=== PATIENT | female | born 2000 | race Two or more races ===

== ENCOUNTER 2024-05-08 19:52 | Emergency (ER) | payer SELFPAY ==
[2024-05-08 19:53] VITALS: BMI 20.4
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
== END 2024-05-08 21:34 | disposition left against medical advice (07) ==
LOC: SERX 21:43
PROVIDERS: Emergency Provider Emergency Medicine
DX: Z53.21 Procedure and treatment not carried out due to patient leaving prior to being seen by health care provider (principal)

== ENCOUNTER 2025-03-10 16:00 | Emergency (ER) | payer SELFPAY ==
[2025-03-10 16:27] VITALS: BP 112/73; PULSE 95; RESP 18; TEMP 36.6; O2SAT 95; BMI 18.6
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
== END 2025-03-10 20:21 | disposition home or self-care (01) ==
PROVIDERS: Emergency Provider Family Medicine
DX: S60.221A Contusion of right hand, initial encounter (principal); V89.2XXA Person injured in unspecified motor-vehicle accident, traffic, initial encounter
CPT/HCPCS: 73130; 99283